=== PATIENT | male | born 1955 | race Caucasian/White ===

== ENCOUNTER 2021-08-22 17:14 | Emergency (ER) | payer OTHER ==
[~2021-08-22 17:14] MED LIST: ASPIRIN CHEWABL81 MG PO; BACLOFEN 20MG T20 MG PO; DULERA 200 MCG8.8 GM INH; DULOXETINE HCL30 MG PO; FLONASE ALLER15.8 ML; GABAPENTIN800 MG PO; GLUCOSAMINE CH1 EAC6 PO; HORIZANT600 MG PO; IBUPROFEN800 MG PO; KADIAN20 MG PO; MEDROL 4MG DOSEP4 MG PO; MS CONTIN15 MG PO; MS CONTIN30 MG PO; OMNIPRED5 ML EYERT; SIMVASTATIN80 MG PO; SYNTHROID125 MCG PO; TIZANIDINE HCL4 MG PO
[2021-08-22 18:37] LABS: BASOPHIL 0.8 % (0-2); EOSINOPHIL 1.5 % (0-7); HCT 44.5 % (42.0-52.0); HGB 14.7 g/dl (13.2-18.0); LYMPHOCYTE 23.9 % (15-48); MCH 31.7 pg (25.0-31.0); MCV 95.9 fL (78.0-100.0); MONOCYTE 6.4 % (0-12); MPV 10.5 fL (6.0-9.5); NRBC 0; PLT 208 K/uL (150-400); RBC 4.64 M/uL (4.70-6.00)
[2021-08-22 18:41] LABS: PROTHROMBIN TIME 12.6 SECONDS (11.8-13.4); PTT 24.2 SECONDS (24.4-34.7)
[2021-08-22 18:45] LABS: BUN/CREAT RATIO (CALC) 15.7 RATIO; CREATININE 0.83 mg/dL (0.67-1.17); POTASSIUM 3.9 mmol/L (3.5-5.1)
== END 2021-08-22 19:18 | disposition other institution (70) ==
LOC: FER 17:14
PROVIDERS: Emergency Medicine
DX: C71.9 Malignant neoplasm of brain, unspecified (principal); Z20.822 Contact with and (suspected) exposure to COVID-19; Z88.2 Allergy status to sulfonamides
CPT/HCPCS: 36415; 80048; 85025; 85610; 85730; J1100; U0002

== ENCOUNTER → 2022-05-23 | Day surgery (SDC) | payer MEDICARE, OTHER ==
[~2022-05-23] VITALS: Ht 177.8 cm; Wt 93.0 kg
[~2022-05-23] MED LIST changes: +BENADRYL25 MG PO; +LIPITOR40 MG PO; +MOVE IT ALONG100 MG PO; +NAMENDA 10MG TA10 MG PO; +PROTONIX 40MG T40 MG PO; +SEROQUEL 25MG T25 MG PO; -SIMVASTATIN80 MG PO
[2022-05-23 10:27] LABS: MCH 37.9 pg (25.0-31.0); MCHC 34.3 g/dL (32.0-36.0); MCV 110.4 fL (78.0-100.0); MPV 9.5 fL (6.0-9.5); RBC 3.17 M/uL (4.70-6.00); RDW 16.2 % (11.5-14.0)
[2022-05-23 10:44] LABS: BILIRUBIN - TOTAL 0.9 mg/dL (0.2-1.0); BUN/CREAT RATIO (CALC) 11.2 RATIO; CREATININE 1.07 mg/dL (0.67-1.17); GLOBULIN (CALCULATION) 3.5 g/dL; POTASSIUM 3.7 mmol/L (3.5-5.1); TOTAL PROTEIN 7.5 g/dL (6.4-8.2)
== END | disposition home or self-care (01) ==
LOC: FAS 09:15
PROVIDERS: Surgery
DX: D50.0 Iron deficiency anemia secondary to blood loss (chronic) (principal); N40.2 Nodular prostate without lower urinary tract symptoms; C71.9 Malignant neoplasm of brain, unspecified; Z86.010 Personal history of colon polyps; Z92.21 Personal history of antineoplastic chemotherapy; Z87.891 Personal history of nicotine dependence; Z88.2 Allergy status to sulfonamides; Z88.8 Allergy status to other drugs, medicaments and biological substances
CPT/HCPCS: 36415; 80053; J1610; J2250; J2704; J7120